=== PATIENT | male | born 1980 | race Caucasian/White ===

== ENCOUNTER 2017-01-18 22:04 | Emergency (ER) | payer OTHER ==
[~2017-01-18] VITALS: Ht 167.6 cm; Wt 91.1 kg
[~2017-01-18 22:04] MED LIST: FLAGYL500 MG PO; LEVAQUIN750 MG PO; LEXAPRO20 MG PO; ZOFRAN4 MG PO
[2017-01-18] MEDS ORDERED: ZOLOFT100 MG PO (23:43)
[2017-01-18 23:51] VITALS: BP 150/88
== END 2017-01-18 23:53 | disposition home or self-care (01) ==
LOC: EME 22:04
DX: F32.9 Major depressive disorder, single episode, unspecified (principal); F84.5 Asperger's syndrome; F41.1 Generalized anxiety disorder
CPT/HCPCS: 90839; 99281; 99285